=== PATIENT | male | born 1995 | race Caucasian/White ===

== ENCOUNTER 2024-03-18 11:03 | Emergency (ER) | payer OTHER, SELFPAY ==
[2024-03-18 11:05] VITALS: BP 117/80
--- NOTE | 2024-03-18 11:56 | ED.GENMED ---
History of Present Illness
General
Chief Complaint: Skin Problem
Time Seen by Provider: 03/18/24 11:41
Travel History
Have you had any contact with someone who has COVID-19?: No
Do you have any symptoms of coronavirus? Fever > 100 degrees, chills, cough, shortness of breath, sore throat, loss of taste or smell, muscle aches, or headache?: No
History of Present Illness
History of Present Illness:
29-year-old male presents to the emergency department for evaluation of redness swelling and pain to the right hand and index finger for the past 2 days. Denies any injuries, does note that 3 weeks ago he had a wound to the right fourth finger base
but this healed without complication. He did receive a tetanus injection at urgent care after this. He notes that the symptoms started as a 'pimple' to the proximal aspect of the right index finger, states he popped the pimple and the swelling
rapidly developed from there. No fevers or chills. No known history of MRSA.
Review of Systems
Review of Systems
Allergies reviewed?: Yes
All Other Systems: ROS reviewed and negative except as documented in HPI and ROS
Phy Exam
Physical Exam
Physical Exam:
GEN: Well appearing, NAD, WDWN
HEENT: Oral mucosa moist, no scleral icterus
Cardiac: Regular rate
Lung: No respiratory distress, no tachypnea
MSK: Moderate swelling and erythema of the right hand extending into the proximal aspect of the second and third digits, no purulent discharge. No pain with passive flexion of the fingers
Skin: Good color, no pallor or jaundice, no rashes
Neuro: AO x3, moves all extremities freely
Psych: Calm, cooperative
Course
Orders/Labs/Results
Orders:
Orders
03/18/24 11:09
Hand, Right 3 View [CR Hand - Right Min 3 Views] Urgent
Comment:
Reason For Exam: swelling and pain right 1st finger
Vital Signs
Initial and Last Documented VS:
Initial Vital Signs
Temp Pulse Resp BP Pulse Ox
99.3 F 89 20 117/80 100
03/18/24 11:05 03/18/24 11:05 03/18/24 11:05 03/18/24 11:05 03/18/24 11:05
Last Documented Vital Signs
Temp Pulse Resp BP Pulse Ox
99.3 F 89 20 117/80 100
03/18/24 11:05 03/18/24 11:05 03/18/24 11:05 03/18/24 11:05 03/18/24 11:05
MDM/Problems Addressed
MDM/Problems Addressed:
Clinical no exam concerns for extensor tenosynovitis particular given the lack of diffuse digit edema. Will start on high-dose cephalexin, encourage supportive care, discussed follow-up parameters
*Critical Care Note
Total Time (30-74mins, 75-104mins- exclusive of procedures): Not Applicable
ED Attending Note
-
Portions of this chart may have been created with voice recognition software.� Occasional wrong word or��sound alike� substitutions may have occurred due to the inherent limitations of voice recognition software.
Discharge Plan
Departure
Patient Disposition: Home (Routine Discharge)
Date of Disposition: 03/18/24
Time of Disposition: 11:56
Patient with high blood pressure during this ER visit?: No
Discharge Problem:
Cellulitis of hand, right
Instructions: Cellulitis (Skin Infection), Adult (DC)
Prescriptions:
New
cephalexin 500 mg capsule
500 mg PO QID 10 Days Qty: 40 0RF
Referrals:
Reji Johnson MD [Family Provider] -
Activity Restrictions/Additional Instructions:
Return to the ER if your symptoms do not improve, or if you develop a fever
Interventions
Interventions:
*Risk Screen - Suicide Last Done: 03/18/24 11:37
*General Assessment Last Done: 03/18/24 11:36
*Neglect/Abuse Screening Last Done: 03/18/24 11:37
ED- Fall Risk Assessment Last Done: 03/18/24 11:39
*ED COVID-19 Vaccine History Last Done: 03/18/24 11:36
*Nursing Disposition Last Done: 03/18/24 12:38
ED-Skin Assessment Last Done: 03/18/24 11:38
Discharge Date and Time
Discharge Date/Time: 03/18/24 12:38
Print Language: MAORI
== END 2024-03-18 12:38 | disposition home or self-care (01) ==
LOC: EMR 11:03
PROVIDERS: EMERGENCY PHYSICIAN Emergency Medicine; FAMILY PHYSICIAN Family Medicine
DX: L03.113 Cellulitis of right upper limb (principal)
CPT/HCPCS: 99283; 73130

== ENCOUNTER 2024-09-27 19:39 | Emergency (ER) | payer OTHER, SELFPAY ==
[2024-09-27 19:40] VITALS: BP 121/79
--- NOTE | 2024-09-27 20:49 | ED.GENMED ---
History of Present Illness
General
Chief Complaint: Eye Problems
Source: patient
Exam Limitations: none
Time Seen by Provider: 09/27/24 20:14
Nursing documentation reviewed up to this point in time: agreed with
History of Present Illness
History of Present Illness:
29-year-old male presenting to the emergency department today with concerns of possible small piece of wood that injured his left eye today when he was using a saw. Claims that there were small wooden fragments he noted some got in his eye and in
his eye has been irritated over the past few hours since.
Review of Systems
Review of Systems
Allergies reviewed?: Yes
All Other Systems: ROS reviewed and negative except as documented in HPI and ROS
Phy Exam
Physical Exam
Physical Exam:
GENERAL: Alert , in no apparent distress
EYE: pupils equal and reactive
NECK: Supple, no significant adenopathy.
ENT: o/p clr, mmm.
CARDIAC: Regular rate and rhythm .
LUNGS: Clear breath sounds bilaterally, no acute respiratory distress, no wheezes/rales/rhonchi
ABDOMEN: Soft, without focal tenderness, no r/g, no cvat
NEUROLOGICAL: Alert and oriented, no focal neuro deficits
SKIN: Warm and dry, skin intact.
MUSCULOSKELETAL: No edema, well perfused.
PSYCH: Normal and appropriate interaction.
Course
Orders/Labs/Results
Orders:
Orders
09/27/24 20:27
Tetracaine HCl [Tetracaine 0.5% Ophthalmic Solution] 1 drop .ROUTE .STK-MED ONE
09/27/24 20:28
Purified Water Eye Wash [Dacriose Eye Wash Solution] 120 ml .ROUTE .STK-MED ONE
09/27/24 20:37
Fluorescein Sodium [Ful-Neisha] 4 mg .ROUTE .STK-MED ONE
09/27/24 20:55
Erythromycin (Ilotycin) [Erythromycin 0.5% Ophthalmic Ointment] See Dose Instructions OPHTH NOW STA
Vital Signs
Initial and Last Documented VS:
Initial Vital Signs
Temp Pulse Resp BP Pulse Ox
98.4 F 80 18 121/79 98
09/27/24 19:40 09/27/24 19:40 09/27/24 19:40 09/27/24 19:40 09/27/24 19:40
Last Documented Vital Signs
Temp Pulse Resp BP Pulse Ox
98.4 F 80 18 121/79 98
09/27/24 19:40 09/27/24 19:40 09/27/24 19:40 09/27/24 19:40 09/27/24 19:40
MDM/Problems Addressed
MDM/Problems Addressed:
29-year-old male presenting to the emergency department today with concerns of discomfort and swelling to the left eye after cutting wood. Here his eye was thoroughly examined without evidence of foreign body. There was vertical corneal abrasion.
He did have full resolution of symptoms after received tetracaine. Patient was written for erythromycin ointment otherwise will follow-up closely with ophthalmology. Return precautions given.
*Critical Care Note
Total Time (30-74mins, 75-104mins- exclusive of procedures): Not Applicable
ED Attending Note
-
Portions of this chart may have been created with voice recognition software.� Occasional wrong word or��sound alike� substitutions may have occurred due to the inherent limitations of voice recognition software.
Discharge Plan
Departure
Patient Disposition: Home (Routine Discharge)
Date of Disposition: 09/27/24
Time of Disposition: 20:57
Patient with high blood pressure during this ER visit?: No
Condition: Good
Covid-19: Not Applicable
Discharge Problem:
Abrasion, corneal
Instructions: Corneal Abrasion (DC)
Prescriptions:
No Action
cephalexin 500 mg capsule
500 mg PO QID 10 Days Qty: 40 0RF
Referrals:
Reji Johnson MD [Family Provider] -
Gelacio Mercado MD [Active] - Follow up in 2-3 days
Activity Restrictions/Additional Instructions:
You came to the emergency department today with concerns of injury to your left eye. Please use the erythromycin ointment and follow-up closely with ophthalmology. Return to the emergency department any worsening, new or concerning symptoms.
Interventions
Interventions:
*Risk Screen - Suicide Last Done: 09/27/24 19:40
*General Assessment Last Done: 09/27/24 19:40
*Neglect/Abuse Screening Last Done: 09/27/24 19:40
*ED COVID-19 Vaccine History Last Done: 09/27/24 19:40
Discharge Date and Time
Print Language: UPPER SORBIAN
[2024-09-27] MEDS: ERYTHROMYCIN 0.5% OPHTHALMIC OINTMENT 1 APPLIC OPHTH (21:00)
== END 2024-09-27 21:16 | disposition home or self-care (01) ==
LOC: EMR 19:39
PROVIDERS: EMERGENCY PHYSICIAN Emergency Medicine; FAMILY PHYSICIAN Family Medicine
DX: S05.02XA Injury of conjunctiva and corneal abrasion without foreign body, left eye, initial encounter (principal); W22.8XXA Striking against or struck by other objects, initial encounter
CPT/HCPCS: 99283